=== PATIENT | male | born 1955 | race African-American/Black ===

== ENCOUNTER 2017-02-07 15:04 | Inpatient (IN) | payer OTHER, MEDICARE ==
[2017-02-07] VITALS (8 sets, daily range): BP systolic 95–153; BP diastolic 60–78; PULSE 73–103; RESP 16–32; TEMP 97.8; O2SAT 99–100
[~2017-02-07 15:04] MED LIST: AMLO5TAB96 PO; GLYB5TAB3 PO; HYDR10TA16 PO; LORT5TAB PO; METF-324 PO; ROBA750T3 PO
[2017-02-07] MEDS ORDERED: ceFAZolin 2 GM PREMIX 50 ML ONE (15:08)
[2017-02-07] MEDS ORDERED: DIPHTH/TETANUS/ACEL PERTUSSIS (BOOSTER) 0.5 ML VIAL/PFS IM ONE (15:08)
--- NOTE | 2017-02-07 15:26 | PD ---
HPI Chief Complaint: Trauma (Alert) Time Seen by Provider: 15:17 Travel History International Travel<30 days: No Contact w/Intl Traveler<30days: No Traveled to known affect area: No History of Present Illness HPI 61-year-old male was brought in as a trauma alert and a level II was called by me. I was in the room prior to patient's arrival. Patient apparently was intoxicated and slipped and fell backwards and hit the back of his head on a fish tank. Spoke with the paramedics there was significant amount of blood loss at the scene. Patient was GCS of 14 and hemodynamically stable otherwise. He was verbally argumentative and did not want to come to the hospital. He was boarded and collared and brought in. Patient was awake enough to tell me his name. 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 Vital signs were stable upon arrival. REPLACED BY [facility] Past Medical History Narrative Medical List of his past medical, surgical, social and family history is reviewed from the nursing note. Asthma: Yes Anxiety: Yes Depression: Yes Cancer: No High Cholesterol: Yes COPD: Yes Diabetes: Yes Diminished Hearing: No GERD: Yes Glaucoma: No Genitourinary: Yes (ENLARGED PROSTATE) Hepatitis: No Hiatal Hernia: No Hypertension: Yes Musculoskeletal: Yes (CHRONIC BACK PN) Respiratory: No Immunizations Current: No Myocardial Infarction: Yes (2003) Thyroid Disease: No Ulcer: Yes Past Surgical History Pacemaker: No Other Surgery: Yes (PROSTATE AND HEMMORIDS) Social History Alcohol Use: No (DENIES USE) Tobacco Use: Yes (<1PPD) Substance Use: No Allergies-Medications (Allergen,Severity, Reaction): Coded Allergies: acetaminophen (Unverified Allergy, Severe, ITCHING, 12/06/16) oxycodone (Unverified Allergy, Severe, ITCHING, 12/06/16) Comments List of his allergies reviewed from the nursing note. Reported Meds & Prescriptions Reported Meds & Active Scripts Active Robaxin-750 (Methocarbamol) 750 Mg Tab 2 Tab PO Q8HPRN Lortab 5/500 (Acetaminophen/Hydrocodone Bitart) 5 Mg/500 Mg Tab 1 Tab PO Q4HPRN FOR PAIN Reported Glyburide 5 Mg Tab 5 Mg PO DAILY Lortab 10/500 (Acetaminophen/Hydrocodone Bitart) 10 Mg/500 Mg Tab 1 Tab PO Q4- 6HPRN FOR PAIN Glucophage (Metformin HCl) 1,000 Mg Tab 1,000 Mg PO BID Norvasc (Amlodipine Besylate) 5 Mg Tab 5 Mg PO DAILY Narrative Medication List of his home medications reviewed from the nursing note. Review of Systems Except as stated in HPI: all other systems reviewed are Neg Physical Exam Narrative GENERAL: Intoxicated, slurred speech, combative, boarded and collared SKIN: Focused skin assessment warm/dry. Pale HEAD: Large 6-7 cm deep laceration on the base of the skull at the posterior aspect. Wound was actively bleeding. EYES: Pupils equal and round. No scleral icterus. No injection or drainage. ENT: No nasal bleeding or discharge. Mucous membranes pink and moist. NECK: Trachea midline. No JVD. CARDIOVASCULAR: Regular rate and rhythm. No murmur appreciated. RESPIRATORY: No accessory muscle use. Clear to auscultation. Breath sounds equal bilaterally. GASTROINTESTINAL: Abdomen soft, non-tender, nondistended. Hepatic and splenic margins not palpable. MUSCULOSKELETAL: No obvious deformities. No clubbing. No cyanosis. No edema. NEUROLOGICAL: GCS of 14. No obvious cranial nerve deficits. Motor grossly within normal limits. Slurred speech. PSYCHIATRIC: Appropriate mood and affect; insight and judgment normal. Data Data Last Documented VS Vital Signs Date Time Temp Pulse Resp B/P (MAP) Pulse Ox O2 Delivery O2 Flow Rate FiO2 02/07/17 15:50 102 24 124/66 (85) 100 Room Air 02/07/17 14:55 2.00 Orders Orders Cefazolin 2 Gm Premix (Ancef 2 Gm Premix (02/07/17 15:08) Zbza-Qhi-Httjxq (Booster) Inj (Boostrix (02/07/17 15:08) I-Stat Profile (02/07/17 15:07) I-Stat Creatinine (02/07/17 15:07) Complete Blood Count With Diff (02/07/17 15:07) Prothrombin Time / Inr (Pt) (02/07/17 15:07) Act Partial Throm Time (Ptt) (02/07/17 15:07) Type And Screen (02/07/17 15:07) Ct Brain W/O Iv Contrast(Rout) (02/07/17 15:07) Ct Cerv Spine W/O Contrast (02/07/17 15:07) Iv Access Insert/Monitor (02/07/17 15:07) Ecg Monitoring (02/07/17 15:07) Oximetry (02/07/17 15:07) Oxygen Administration (02/07/17 15:07) Trauma Office Use Only (02/07/17 15:32) Haloperidol Inj (Haldol Inj) (02/07/17 15:45) Lorazepam Inj (Ativan Inj) (02/07/17 15:45) Lorazepam Inj (Ativan Inj) (02/07/17 16:15) Admit Order (Ed Use Only) (02/07/17 16:02) Labs Laboratory Tests Test 02/07/17 15:05 White Blood Count 4.9 TH/MM3 Red Blood Count 4.14 MIL/MM3 Hemoglobin 12.5 GM/DL Bedside Hemoglobin 13.3 G/DL Hematocrit 37.7 % Bedside Hematocrit 39.0 % Mean Corpuscular Volume 91.1 FL Mean Corpuscular Hemoglobin 30.2 PG Mean Corpuscular Hemoglobin Concent 33.2 % Red Cell Distribution Width 14.4 % Platelet Count 275 TH/MM3 Mean Platelet Volume 8.4 FL Neutrophils (%) (Auto) 61.5 % Lymphocytes (%) (Auto) 32.0 % Monocytes (%) (Auto) 5.1 % Eosinophils (%) (Auto) 0.3 % Basophils (%) (Auto) 1.1 % Neutrophils # (Auto) 3.0 TH/MM3 Lymphocytes # (Auto) 1.6 TH/MM3 Monocytes # (Auto) 0.3 TH/MM3 Eosinophils # (Auto) 0.0 TH/MM3 Basophils # (Auto) 0.1 TH/MM3 CBC Comment DIFF FINAL Differential Comment Prothrombin Time 11.5 SEC Prothromb Time International Ratio 1.0 RATIO Activated Partial Thromboplast Time 26.4 SEC Bedside Sodium 138 MMOL/L Bedside Potassium 3.5 MMOL/L Bedside Chloride 98 MMOL/L Bedside Blood Urea Nitrogen LESS THAN 3 MG/DL Bedside Creatinine 1.1 MG/DL Bedside Glucose 164 MG/DL [facility] Medical Screen Exam Complete: Yes Emergency Medical Condition: Yes Medical Record Reviewed: Yes EKG Prior to Arrival: Yes Differential Diagnosis Scalp laceration, skull fracture, intracranial bleed, cervical fracture, intoxication Narrative Course 3:57 PM patient's scalp laceration was emergently stapled given the fact that it was bleeding significantly. Once hemostasis was achieved patient was taken to CT scanner. Patient's GCS and hemodynamics remained steady. Patient meanwhile continued to be belligerent and wants to leave. He is not in capacity right now. I medicated him with Haldol and Ativan. CT scan report came back and shows a cerebral contusion. I discussed the case with the trauma surgeon who wants him admitted to the ICU. I just spoke with neurosurgeon's PA and and they will be consulted. Critical Care Narrative Aggregate critical care time was 60 minutes. Time to perform other separately billable procedures was not included in the critical care time. My time did not include minutes spent treating any other patients simultaneously or on activities that did not directly contribute to the patient's treatment. The services I provided to this patient were to treat and/or prevent clinically significant deterioration that could result in: Trauma alert, intracranial head injury, scalp laceration I provided critical care services requiring my management, as noted below: Chart data review, documentation time, medication orders and management, vital sign assessments/reviewing monitor data, ordering and reviewing lab tests, ordering and interpreting/reviewing x-rays and diagnostic studies, care of the patient and discussion of the patient with the admitting physicians. Procedures Procedure Narrative LACERATION LOCATION: Posterior scalp at the base of the skull LENGTH: 7 NUMBER OF STITCHES/GABRIELLE: 13 gabrielle REPAIR: The area of the laceration was prepped with Betadine and sterilely draped. The laceration was infiltrated with None. The wound was copiously irrigated and explored without evidence of foreign body, tendon injury or neurovascular injury. The wound was closed using gabrielle. This was a single layer repair. A sterile dressing was applied. The patient was advised to keep the dressing clean and dry. Patient tolerated the procedure well. LACERATION LOCATION: Left posterior auricular LENGTH: 5 cm NUMBER OF STITCHES/GABRIELLE: 10 gabrielle REPAIR: The area of the laceration was prepped with Betadine and sterilely draped. The laceration was infiltrated with None. The wound was copiously irrigated and explored without evidence of foreign body, tendon injury or neurovascular injury. The wound was closed using gabrielle. This was a single layer repair. A sterile dressing was applied. The patient was advised to keep the dressing clean and dry. Patient tolerated the procedure well. Trauma Alert - Level Two Trauma Alert Level Two: Full trauma team activate, Patient evaluated, Trauma surgeon called Time Surgeon Called: 16:[address] Mcgovern team, Dr. Damon Diagnosis Diagnosis: Primary Impression: Head injury Qualified Codes: S09.90XA - Unspecified injury of head, initial encounter Additional Impressions: Scalp laceration Qualified Codes: S01.01XA - Laceration without foreign body of scalp, initial encounter Cerebral contusion Qualified Codes: S06.331A - Contusion and laceration of cerebrum, unspecified , with loss of consciousness of 30 minutes or less, initial encounter Acute alcohol intoxication Qualified Codes: F10.929 - Alcohol use, unspecified with intoxication, unspecified Altered mental status Qualified Codes: R41.0 - Disorientation, unspecified Admitting Physician Requests: Admit Segun Thayer MD Feb 07, 2017 15:26
[2017-02-07 15:31] LABS: I-STAT SODIUM 138 MMOL/L (138-146)
[2017-02-07 15:32] LABS: BASOPHIL # 0.1 TH/MM3 (0-0.2); BASOPHIL % 1.1 % (0.0-2.0); EOSINOPHIL % 0.3 % (0.0-4.0); HEMATOCRIT 37.7 % (39.0-51.0); HEMO FLAGS DIFF FINAL; I-STAT POTASSIUM 3.5 MMOL/L (3.5-4.9); LYMPHOCYTE # 1.6 TH/MM3 (1.0-4.8); MEAN CELL VOLUME 91.1 FL (80.0-100.0); MEAN CORPUSCULAR HEMOGLOBIN 30.2 PG (27.0-34.0); MEAN CORPUSCULAR HGB CONC 33.2 % (32.0-36.0); MONO % 5.1 % (0.0-8.0); NEUT % 61.5 % (16.0-70.0); PLATELET COUNT 275 TH/MM3 (150-450); RED BLOOD COUNT 4.14 MIL/MM3 (4.50-5.90); RED CELL DISTRIBUTION WIDTH 14.4 % (11.6-17.2); WHITE BLOOD COUNT 4.9 TH/MM3 (4.0-11.0)
--- NOTE | 2017-02-07 15:32 | RADRPT ---
EXAM DATE/TIME: 02/07/2017 15:15 [facility] COMPARISON: No previous studies available for comparison. INDICATIONS : Trauma alert. Fell into his fishtank. Head laceration. RADIATION DOSE: 56.35 CTDIvol (mGy) MEDICAL HISTORY : Chronic obstructive pulmonary disease. Myocardial infarction. Diabetes mellitus type 2.Hypertension. SURGICAL HISTORY : None. ENCOUNTER: Initial ACUITY: 1 day PAIN SCALE: 7/10 LOCATION: cranial TECHNIQUE: Multiple contiguous axial images were obtained of the head. Using automated exposure control and adj ustment of the mA and/or kV according to patient size, radiation dose was kept as low as reasonably a chievable to obtain optimal diagnostic quality images. DICOM format image data is available electro nically for review and comparison. FINDINGS: CEREBRUM: The ventricles are normal for age. No evidence of midline shift, mass lesion or acute infarction. Ho wever, there appears to be some spontaneously dense material in the cortex high along the left cerebr al vertex. This is Suggestive of a hemorrhagic contusion. No extra-axial fluid collections are seen. POSTERIOR FOSSA: The cerebellum and brainstem are intact. The 4th ventricle is midline. The cerebellopontine angle i s unremarkable. EXTRACRANIAL: The visualized portion of the orbits is intact. SKULL: The calvaria is intact. No evidence of skull fracture. CONCLUSION: 1. Focal hemorrhagic contusion involving the cortex high along the left cerebral vertex. 2. The rest of the CT brain is unremarkable. Eloy Montaño MD on February 07, 2017 at 15:28 Board Certified Radiologist. This report was verified electronically.
[2017-02-07 15:42] LABS: APTT (PATIENT) 26.4 SEC (24.3-30.1); PROTHROMBIN TIME - PATIENT 11.5 SEC (9.8-11.6)
[2017-02-07] MEDS ORDERED: LORazepam 2 MG/ML VIAL IM ONE (15:45)
[2017-02-07] MEDS ORDERED: HALOPERIDOL LACTATE 5 MG/ML AMP IM ONE (15:45)
--- NOTE | 2017-02-07 15:53 | RADRPT ---
EXAM DATE/TIME: 02/07/2017 15:15 [facility] COMPARISON: No previous studies available for comparison. INDICATIONS : Trauma alert. Fell into his fishtank. Head laceration. RADIATION DOSE: 40.34 CTDIvol (mGy) MEDICAL HISTORY : Chronic obstructive pulmonary disease. Myocardial infarction. Diabetes mellitus type 2.Hypertension. SURGICAL HISTORY : None. ENCOUNTER: Initial ACUITY: 1 day PAIN SCALE: 2/10 LOCATION: neck TECHNIQUE: Volumetric scanning of the cervical spine was performed. Multiplanar reconstructions in the sagittal, coronal and oblique axial planes were performed. Using automated exposure control and adjustment o f the mA and/or kV according to patient size, radiation dose was kept as low as reasonably achievable to obtain optimal diagnostic quality images. DICOM format image data is available electronically f or review and comparison. FINDINGS: VERTEBRAE: Normal vertebral body height. ALIGNMENT: No evidence of subluxation. C2-C3: The bony spinal canal is normal in size. No evidence of disc bulge or herniation. Prominent bony unc overtebral hypertrophy generates significant bilateral neural foraminal narrowing. C3-C4: Broad-based disc bulge. Central canal remains patent. Prominent bony uncovertebral hypertrophy genera manasa significant bilateral neural foraminal narrowing. C4-C5: A broad-based disc bulge without central canal stenosis. Prominent bony uncovertebral hypertrophy gen erates moderate bilateral neural foraminal narrowing. C5-C6: There is disc space narrowing with a prominent anterior osteophyte. No significant disc bulge or prot rusion posteriorly. The central canal is patent. Bony uncovertebral hypertrophy with no significant n eural foraminal narrowing. C6-C7: Disc space narrowing with anterior osteophyte during a broad-based disc bulge posteriorly without janell tral canal stenosis. Neural foramina are patent bilaterally. C7-T1: The bony spinal canal is normal in size. No evidence of disc bulge or herniation. The neural forami na are bilaterally patent. CONCLUSION: 1. No fracture or dislocation. 2. Multilevel degenerative changes particularly involving neural foraminal narrowing as detailed anselmo Knight Jr., MD on February 07, 2017 at 15:41 Board Certified Radiologist. This report was verified electronically.
[2017-02-07] MEDS ORDERED: LORazepam 2 MG/ML VIAL IV PUSH ONE (16:15)
--- NOTE | 2017-02-07 16:16 | PD.CONS ---
HPI Consult Requested By DR Sidhu Reason for Consult Trauma alertm TBI Primary Care Physician Venkata Suarez, DO History of Present Illness This is a 61-year-old male was brought in as a trauma alert and a level II was called. He apparently was intoxicated and slipped and fell backwards and hit the back of his head on a fish tank. Spoke with the paramedics there was significant amount of blood loss at the scene. Patient was GCS of 14 and hemodynamically stable otherwise. He was verbally argumentative and did not want to come to the hospital. He was boarded and collared and brought in. He was hemodynamically stable. No seizure activity noted. No tongue bitting. No incontinence of astool or urine. he was intocxicated. 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 CT of the brain Neurosurgical consultation was requested Review of Systems ROS not possible due to neurological condition ROS Limitations: Clinical Condition, Intoxication, Altered Mental Status Past Family Social History Allergies: Coded Allergies: acetaminophen (Unverified Allergy, Severe, ITCHING, 12/06/16) oxycodone (Unverified Allergy, Severe, ITCHING, 12/06/16) Past Medical History Asthma: Yes Anxiety: Yes Depression: Yes Cancer: No High Cholesterol: Yes COPD: Yes Diabetes: Yes Diminished Hearing: No GERD: Yes Glaucoma: No Genitourinary: Yes (ENLARGED PROSTATE) Hepatitis: No Hiatal Hernia: No Hypertension: Yes Musculoskeletal: Yes (CHRONIC BACK PN) Respiratory: No Immunizations Current: No Myocardial Infarction: Yes (2003) Thyroid Disease: No Ulcer: Yes Past Surgical History PROSTATE for BPH\ HEMMORIDECTOMY Reported Medications Robaxin-750 (Methocarbamol) 750 Mg Tab 2 Tab PO Q8HPRN Lortab 5/500 (Acetaminophen/Hydrocodone Bitart) 5 Mg/500 Mg Tab 1 Tab PO Q4HPRN FOR PAIN Glyburide 5 Mg Tab 5 Mg PO DAILY Lortab 10/500 (Acetaminophen/Hydrocodone Bitart) 10 Mg/500 Mg Tab 1 Tab PO Q4- 6HPRN FOR PAIN Glucophage (Metformin HCl) 1,000 Mg Tab 1,000 Mg PO BID Norvasc (Amlodipine Besylate) 5 Mg Tab 5 Mg PO DAILY Active Ordered Medications Current Medications Cefazolin Sodium/ Dextrose 50 ml @ As Directed STK-MED ONCE .ROUTE ; Start at 15:08; Stop 02/07/17 at 15:09; Status DC Diphtheria/ Tetanus/Acell Pertussis (Boostrix Inj) 0.5 ml STK-MED ONCE IM ; Start 02/07/17 at 15:08; Stop 02/07/17 at 15:09; Status DC Haloperidol Lactate (Haldol Inj) 5 mg ONCE ONCE IM Last administered on 15:46; Start 02/07/17 at 15:45; Stop 02/07/17 at 15:46; Status DC Lorazepam (Ativan Inj) 2 mg ONCE ONCE IM Last administered on 02/07/17 15:46 ; Start 02/07/17 at 15:45; Stop 02/07/17 at 15:46; Status DC Lorazepam (Ativan Inj) 1 mg ONCE ONCE IV PUSH Last administered on 02/07/17 16:48; Start 02/07/17 at 16:15; Stop 02/07/17 at 16:16; Status DC Family History His family history was reviewed and noncontributory to this traumatic event Social History Alcohol Use: No (DENIES USE) Tobacco Use: Yes (<1PPD) Substance Use: N Physical Exam Vital Signs Vital Signs Date Time Temp Pulse Resp B/P (MAP) Pulse Ox O2 Delivery O2 Flow Rate FiO2 02/07/17 15:50 102 24 124/66 (85) 100 Room Air 02/07/17 15:47 100 Room Air 02/07/17 15:47 103 25 124/66 (85) 100 Room Air 02/07/17 15:45 96 21 117/78 (91) 100 02/07/17 14:55 100 2.00 Physical Exam The patient is alert, confused, oriented to self. GCS 14. Large occipital scalp laceration Cranial nerve examination demonstrates the pupils to be equal, round, and reactive to light. Extra-ocular movements are intact with normal convergence. Facial motor function appears normal and symmetrical. Face sensation, hearing, visual dee, and olfaction can not be assessed properly due to the patients condition. The patient has an intact corneal reflex and a gag reflex. Sternocleidomastoid and trapezius have normal and symmetrical strength. Other cranial nerves are intact. Neck is soft and supple. Cervical spine has a normal range of motion of the cervical spine without pain. There is no tenderness to palpation to the spinous processes or paraspinal muscles. Muscle testing reveals normal bulk and tone overall without rigidity, spasticity , fasciculations, or atrophy. Muscle strength is 5/5 in all muscle groups of both upper and lower extremities. Deep tendon reflexes are 1+ and symmetrical in the biceps, triceps, and brachioradialis, bilaterally, in the upper extremities. In the lower extremities , the patellar and Achilles are 1+, bilaterally. There is a bilateral plantar flexion response. Hoffmanns sign is negative. There is no clonus or other abnormal reflexes noted. Cerebellar examination is limited due to the patient condition, but no obvious deficits are noted. Laboratory Laboratory Tests Test 02/07/17 15:05 White Blood Count 4.9 Red Blood Count 4.14 Hemoglobin 12.5 Bedside Hemoglobin 13.3 Hematocrit 37.7 Bedside Hematocrit 39.0 Mean Corpuscular Volume 91.1 Mean Corpuscular Hemoglobin 30.2 Mean Corpuscular Hemoglobin Concent 33.2 Red Cell Distribution Width 14.4 Platelet Count 275 Mean Platelet Volume 8.4 Neutrophils (%) (Auto) 61.5 Lymphocytes (%) (Auto) 32.0 Monocytes (%) (Auto) 5.1 Eosinophils (%) (Auto) 0.3 Basophils (%) (Auto) 1.1 Neutrophils # (Auto) 3.0 Lymphocytes # (Auto) 1.6 Monocytes # (Auto) 0.3 Eosinophils # (Auto) 0.0 Basophils # (Auto) 0.1 CBC Comment DIFF FINAL Differential Comment Prothrombin Time 11.5 Prothromb Time International Ratio 1.0 Activated Partial Thromboplast Time 26.4 Bedside Sodium 138 Bedside Potassium 3.5 Bedside Chloride 98 Bedside Blood Urea Nitrogen LESS THAN 3 Bedside Creatinine 1.1 Bedside Glucose 164 Result Diagram: 02/07/17 1505 Imaging Last [address] 02/07/17 1507 Signed Impressions: Service Date/Time: Tuesday, February 07, 2017 15:15 - CONCLUSION: 1. Focal hemorrhagic contusion involving the cortex high along the left cerebral vertex. 2. The rest of the CT brain is unremarkable. Eloy Montaño MD Cervical Spine CT 02/07/17 1507 Signed Impressions: Service Date/Time: Tuesday, February 07, 2017 15:15 - CONCLUSION: 1. No fracture or dislocation. 2. Multilevel degenerative changes particularly involving neural foraminal narrowing as detailed above. Nilesh Knight Jr., MD Assessment and Plan Assessment and Plan Manfredrini VTE Risk Assessment Caprini VTE Risk Assessment: Mod/High Risk (score >= 2) VTE Pharm Contraindication: High risk for bleeding Caprini Risk Assessment Model Point Value = 1 Point Value = 2 Point Value = 3 Point Value = 5 Age 41-60 Minor surgery BMI > 25 kg/m2 Swollen legs Varicose veins or History of unexplained or recurrent spontaneous Oral contraceptives or hormone replacement Sepsis (< 1 month) Serious lung disease, including pneumonia (< 1 month) Abnormal pulmonary function Acute myocardial infarction Congestive heart failure (< 1 month) History of inflammatory bowel disease Medical patient at bed rest Age 61-74 Arthroscopic surgery Major open surgery (> 45 min) Laparoscopic surgery (> 45 min) Malignancy Confined to bed (> 72 hours) Immobilizing plaster cast Central venous access Age >= 75 History of VTE Family history of VTE Factor V Leiden Prothrombin [id number] Lupus anticoagulant Anticardiolipin antibodies Elevated serum homocysteine Heparin-induced thrombocytopenia Other congenital or acquired thrombophilia Stroke (< 1 month) Elective arthroplasty Hip, pelvis, or leg fracture Acute spinal cord injury (< 1 month) Prophylaxis Regimen Total Risk Factor Score Risk Level Prophylaxis Regimen 0-1 Low Early ambulation 2 Moderate Order ONE of the following: *Sequential Compression Device (SCD) *Heparin 5000 units SQ BID 3-4 Higher Order ONE of the following medications: *Heparin 5000 units SQ TID *Enoxaparin/Lovenox 40 mg SQ daily (WT < 150 kg, CrCl > 30 mL/min) *Enoxaparin/Lovenox 30 mg SQ daily (WT < 150 kg, CrCl > 10-29 mL/min) *Enoxaparin/Lovenox 30 mg SQ BID (WT < 150 kg, CrCl > 30 mL/min) AND/OR *Sequential Compression Device (SCD) 5 or more Highest Order ONE of the following medications: *Heparin 5000 units SQ TID (Preferred with Epidurals) *Enoxaparin/Lovenox 40 mg SQ daily (WT < 150 kg, CrCl > 30 mL/min) *Enoxaparin/Lovenox 30 mg SQ daily (WT < 150 kg, CrCl > 10-29 mL/min) *Enoxaparin/Lovenox 30 mg SQ BID (WT < 150 kg, CrCl > 30 mL/min) AND *Sequential Compression Device (SCD) Caprini VTE Risk Assessment Caprini VTE Risk Assessment: Mod/High Risk (score >= 2) VTE Pharm Contraindication: High risk for bleeding Caprini Risk Assessment Model Point Value = 1 Point Value = 2 Point Value = 3 Point Value = 5 Age 41-60 Minor surgery BMI > 25 kg/m2 Swollen legs Varicose veins or History of unexplained or recurrent spontaneous Oral contraceptives or hormone replacement Sepsis (< 1 month) Serious lung disease, including pneumonia (< 1 month) Abnormal pulmonary function Acute myocardial infarction Congestive heart failure (< 1 month) History of inflammatory bowel disease Medical patient at bed rest Age 61-74 Arthroscopic surgery Major open surgery (> 45 min) Laparoscopic surgery (> 45 min) Malignancy Confined to bed (> 72 hours) Immobilizing plaster cast Central venous access Age >= 75 History of VTE Family history of VTE Factor V Leiden Prothrombin [id number] Lupus anticoagulant Anticardiolipin antibodies Elevated serum homocysteine Heparin-induced thrombocytopenia Other congenital or acquired thrombophilia Stroke (< 1 month) Elective arthroplasty Hip, pelvis, or leg fracture Acute spinal cord injury (< 1 month) Prophylaxis Regimen Total Risk Factor Score Risk Level Prophylaxis Regimen 0-1 Low Early ambulation 2 Moderate Order ONE of the following: *Sequential Compression Device (SCD) *Heparin 5000 units SQ BID 3-4 Higher Order ONE of the following medications: *Heparin 5000 units SQ TID *Enoxaparin/Lovenox 40 mg SQ daily (WT < 150 kg, CrCl > 30 mL/min) *Enoxaparin/Lovenox 30 mg SQ daily (WT < 150 kg, CrCl > 10-29 mL/min) *Enoxaparin/Lovenox 30 mg SQ BID (WT < 150 kg, CrCl > 30 mL/min) AND/OR *Sequential Compression Device (SCD) 5 or more Highest Order ONE of the following medications: *Heparin 5000 units SQ TID (Preferred with Epidurals) *Enoxaparin/Lovenox 40 mg SQ daily (WT < 150 kg, CrCl > 30 mL/min) *Enoxaparin/Lovenox 30 mg SQ daily (WT < 150 kg, CrCl > 10-29 mL/min) *Enoxaparin/Lovenox 30 mg SQ BID (WT < 150 kg, CrCl > 30 mL/min) AND *Sequential Compression Device (SCD) Attending Statement traumatic brain injury. Neuro checks in a serial fashion. Nonoperative treatent for now. Follow up CT in AM PT and OT evaluation Scalp laceration. Repaired at bedside. Wound care with bacitracin ETOH intoxication. Attempted to councel Pulmonary aggressive pulmonary toilette, nasotracheal suction, and breathing treatments with nebulizers. Nutrition. NPO Renal. monitor closely urine output, BUN and creatinine Espitia in place. Monitor intake and output. Monitor electrolytes and replace as indicated per ICU electrolyte replacement protocol. ENDO:Acute hyperglycemia secondary to trauma. Monitor bedside glucose and initiate low-dose insulin sliding scale as indicated for glucose greater than 180 Protonix for stress ulcer prophylaxis Nabil flores and SCD's for DVT prophylaxis Shane Damon MD Feb 07, 2017 16:16
[2017-02-07] MEDS ORDERED: LIDOCAINE HCL 1% 50 ML VIAL ONE (18:29)
[2017-02-07] MEDS: SODIUM CHLOR 0.9% 1000 ML INJ 1,000 ML IV SCH ×3 (19:00→20:56)
[2017-02-07] MEDS ORDERED: NOREPINEPHRINE 4 MG/4 ML AMP ONE (19:14)
[2017-02-07] MEDS ORDERED: NOREPINEPHRINE INJ 4 MG in SODIUM CHLOR 0.9% 250 ML INJ 250 ML IV PRN (19:30)
[2017-02-07] MEDS ORDERED: LIDOCAINE HCL 1% 30 ML VIAL SQ ONE (20:15)
[2017-02-07 20:16] LABS: HEMATOCRIT 25.2 % (39.0-51.0); REVIEW FLAG FINAL
[2017-02-07 20:33] LABS: APTT (PATIENT) 28.7 SEC (24.3-30.1); INTERNATIONAL NORMALIZED RATIO 1.1 RATIO; PROTHROMBIN TIME - PATIENT 12.7 SEC (9.8-11.6)
[2017-02-07] MEDS ORDERED: MISCELLANEOUS NURSING INFORMATION XX SCH (22:00)
[2017-02-07] MEDS ORDERED: SODIUM CHLORIDE 0.9% FLUSH 10 ML FLUSH IV FLUSH PRN (22:00)
[2017-02-07] MEDS ORDERED: ONDANSETRON HCL 4 MG/2 ML VIAL IV PUSH PRN (22:00)
[2017-02-07] MEDS ORDERED: ENALAPRILAT 1.25 MG/ML VIAL IV PUSH PRN (22:00)
[2017-02-07] MEDS ORDERED: CHLORHEXIDINE GLUCONATE 2 % 1 PACK (2 CLOTHS) TOP PRN (22:00)
[2017-02-07] MEDS ORDERED: PANTOPRAZOLE SODIUM 40 MG VIAL IVP SCH (22:00)
[2017-02-07] MEDS: ceFAZolin 2 GM PREMIX 50 ML IV SCH (23:22)
[2017-02-08] VITALS (10 sets, daily range): BP systolic 114–150; BP diastolic 56–76; PULSE 73–103; RESP 17–26; TEMP 97.7–100.1; O2SAT 98–100
[2017-02-08 00:20] LABS: AUTOMATED NEUTROPHIL # 9.4 TH/MM3 (1.8-7.7); BASOPHIL # 0.1 TH/MM3 (0-0.2); BASOPHIL % 0.5 % (0.0-2.0); HEMO FLAGS DIFF FINAL; LYMPHOCYTE # 1.8 TH/MM3 (1.0-4.8); MEAN CORPUSCULAR HEMOGLOBIN 29.2 PG (27.0-34.0); MEAN CORPUSCULAR HGB CONC 32.5 % (32.0-36.0); MONO % 4.9 % (0.0-8.0); NEUT % 79.6 % (16.0-70.0); PLATELET COUNT 246 TH/MM3 (150-450); RED BLOOD COUNT 2.77 MIL/MM3 (4.50-5.90); RED CELL DISTRIBUTION WIDTH 14.2 % (11.6-17.2); WHITE BLOOD COUNT 11.8 TH/MM3 (4.0-11.0)
[2017-02-08] MEDS: DEXMEDETOMIDINE 200 MCG in NS 48 ML IV PRN ×2 (00:41→04:03)
[2017-02-08] MEDS ORDERED: ACETAMINOPHEN 325 MG TAB PO ONE (03:45)
[2017-02-08] MEDS ORDERED: CHLORHEXIDINE GLUCONATE 2 % 1 PACK (2 CLOTHS) TOP SCH (04:00)
--- NOTE | 2017-02-08 04:42 | PD.CONS ---
[facility] Service Critical Care Medicine Consult Requested By Primary Care Physician Venkata Suarez DO History of Present Illness 61-year-old male was brought in as a trauma alert. Patient was intoxicated and slipped and fell backwards and hit the back of his head on a fish tank. Per paramedics there was significant amount of blood loss at the scene. Patient was GCS of 14 and hemodynamically stable otherwise. He was verbally argumentative and did not want to come to the hospital. He was boarded and collared and brought in. Vital signs were stable upon arrival. Due to agitation he received Haldol and Ativan in the emergency department and became very obtunded. There was a further concern of an airway protection and patient was admitted to ICU. Review of Systems Constitutional: DENIES: Diaphoretic episodes, Fatigue, Fever, Weight gain, Weight loss, Chills, Dizziness, Change in appetite, Night Sweats Endocrine: DENIES: Heat/cold intolerance, Polydipsia, Polyuria, Polyphagia Eyes: DENIES: Blurred vision, Diplopia, Eye inflammation, Eye pain, Vision loss , Photosensitivity, Double Vision Ears, nose, mouth, throat: DENIES: Tinnitus, Hearing loss, Vertigo, Nasal discharge, Oral lesions, Throat pain, Hoarseness, Ear Pain, Running Nose, Epistaxis, Sinus Pain, Toothache, Odynophagia Respiratory: DENIES: Apneas, Cough, Snoring, Wheezing, Hemoptysis, Sputum production, Shortness of breath Cardiovascular: DENIES: Chest pain, Palpitations, Syncope, Dyspnea on Exertion , PND, Lower Extremity Edema, Orthopnea, Claudication Gastrointestinal: DENIES: Abdominal pain, Black stools, Bloody stools, Constipation, Diarrhea, Nausea, Vomiting, Difficulty Swallowing, Anorexia Genitourinary: DENIES: Sexual dysfunction, Urinary frequency, Urinary incontinence, Urgency, Hematuria, Dysuria, Nocturia, Penile Discharge, Testicular Pain, Testicular Swelling Musculoskeletal: DENIES: Joint pain, Muscle aches, Stiffness, Joint Swelling, Back pain, Neck pain Integumentary: DENIES: Abnormal pigmentation, Nail changes, Pruritus, Rash Hematologic/lymphatic: DENIES: Bruising, Lymphadenopathy Immunologic/allergic: DENIES: Eczema, Urticaria Neurologic: COMPLAINS OF: Headache, DENIES: Abnormal gait, Localized weakness, Paresthesias, Seizures, Speech Problems, Tremor, Poor Balance Psychiatric: COMPLAINS OF: Anxiety, DENIES: Confusion, Mood changes, Depression , Hallucinations, Agitation, Suicidal Ideation, Homicidal Ideation, Delusions Past Family Social History Allergies: Coded Allergies: acetaminophen (Unverified Allergy, Severe, ITCHING, 12/06/16) oxycodone (Unverified Allergy, Severe, ITCHING, 12/06/16) Past Medical History Coronary artery disease Diabetes Hypertension Dyslipidemia Anxiety Asthma Past Surgical History Hemorrhoidectomy TURP Reported Medications Reported Meds & Active Scripts Active Robaxin-750 (Methocarbamol) 750 Mg Tab 2 Tab PO Q8HPRN Lortab 5/500 (Acetaminophen/Hydrocodone Bitart) 5 Mg/500 Mg Tab 1 Tab PO Q4HPRN FOR PAIN Reported Glyburide 5 Mg Tab 5 Mg PO DAILY Lortab 10/500 (Acetaminophen/Hydrocodone Bitart) 10 Mg/500 Mg Tab 1 Tab PO Q4- 6HPRN FOR PAIN Glucophage (Metformin HCl) 1,000 Mg Tab 1,000 Mg PO BID Norvasc (Amlodipine Besylate) 5 Mg Tab 5 Mg PO DAILY Active Ordered Medications Current Medications Medications (Trade) Dose Ordered Sig/Kvng Route PRN Reason Start Time Stop Time Status Last Admin Dose Admin Norepinephrine Bitartrate 4 mg/ Sodium Chloride 254 ml @ 7.62 mls/hr TITRATE PRN IV Maintain MAP > 65 mmHg 02/07/17 19:30 02/07/17 19:00 Sodium Chloride 1,000 ml @ 100 mls/hr Q10H IV 02/07/17 19:45 02/07/17 19:00 Sodium Chloride (NS Flush) 2 ml UNSCH PRN IV FLUSH FLUSH AFTER USING IV ACCESS 02/07/17 22:00 Enalaprilat (Vasotec Inj) 1.25 mg Q8H PRN IV PUSH SBP>180, DBP>95 02/07/17 22:00 Ondansetron HCl (Zofran Inj) 4 mg Q6H PRN IV PUSH NAUSEA OR VOMITING 02/07/17 22:00 Pantoprazole Sodium (Protonix Inj) 40 mg Q24H IVP 02/07/17 22:00 02/07/17 23:22 Miscellaneous Information 1 Q361D XX 02/07/17 22:00 Chlorhexidine Gluconate (Chlorhexidine 2% Cloth) 3 pack Taper DAILY@04 TOP 02/08/17 04:00 02/04/18 03:59 Chlorhexidine Gluconate (Chlorhexidine 2% Cloth) 3 pack UNSCH PRN TOP HYGIENIC CARE 02/07/17 22:00 Cefazolin Sodium/ Dextrose 50 ml @ 100 mls/hr Q8H IV 02/07/17 23:00 02/07/17 23:22 Dexmedetomidine HCl 200 mcg/ Sodium Chloride 50 ml @ 4.36 mls/hr TITRATE PRN IV Desired RASS 02/07/17 22:30 02/08/17 04:03 Family History No family history significant for coronary artery disease or cancer Social History Smokes one pack per day, denies regular alcohol or illicit drug abuse Physical Exam Vital Signs Vital Signs Date Time Temp Pulse Resp B/P (MAP) Pulse Ox O2 Delivery O2 Flow Rate FiO2 02/08/17 00:00 97.7 103 20 131/76 (94) 99 02/07/17 22:12 100 Nasal Cannula 2.00 02/07/17 20:40 98 135/44 02/07/17 20:30 98 119/67 02/07/17 20:00 97.8 102 32 153/71 (98) 100 02/07/17 20:00 88 135/71 02/07/17 19:30 98 140/101 02/07/17 19:00 98 Nasal Cannula 3.00 02/07/17 19:00 98 66/41 02/07/17 17:44 100 Nasal Cannula 3.00 02/07/17 16:50 02/07/17 16:41 91 16 114/72 (86) 99 Room Air 02/07/17 16:23 73 21 95/60 (72) 100 02/07/17 15:50 102 24 124/66 (85) 100 Room Air 02/07/17 15:47 100 Room Air 02/07/17 15:47 103 25 124/66 (85) 100 Room Air 02/07/17 15:45 96 21 117/78 (91) 100 02/07/17 14:55 100 2.00 Physical Exam GENERAL: Well-nourished, well-developed patient. SKIN: Warm and dry. HEAD: Normocephalic. EYES: No scleral icterus. No injection or drainage. NECK: Supple, trachea midline. No JVD or lymphadenopathy. CARDIOVASCULAR: Regular rate and rhythm without murmurs, gallops, or rubs. RESPIRATORY: Breath sounds equal bilaterally. No accessory muscle use. GASTROINTESTINAL: Abdomen soft, non-tender, nondistended. MUSCULOSKELETAL: No cyanosis, or edema. BACK: Nontender without obvious deformity. NEURO EXAM: GCS: M 6 V 5 E 4 Mental Status: The patient is alert and oriented to person, place, and time with normal speech. Cranial Nerves: Visual acuity intact bilaterally. Visual dee normal in all quadrants. Pupils are round, reactive to light. Extraocular movements are intact without ptosis. Hearing is normal bilaterally. Voice is normal. Tongue protrudes midline and moves symmetrically. Reflexes: Biceps, patellar, and Achilles are 2/4 bilaterally. No clonus. Laboratory Laboratory Tests Test 02/07/17 15:05 02/07/17 17:30 02/07/17 19:27 02/08/17 00:00 White Blood Count 4.9 11.8 Red Blood Count 4.14 2.77 Hemoglobin 12.5 8.3 8.1 Bedside Hemoglobin 13.3 Hematocrit 37.7 25.2 25.0 Bedside Hematocrit 39.0 Mean Corpuscular Volume 91.1 90.0 Mean Corpuscular Hemoglobin 30.2 29.2 Mean Corpuscular Hemoglobin Concent 33.2 32.5 Red Cell Distribution Width 14.4 14.2 Platelet Count 275 246 Mean Platelet Volume 8.4 8.3 Neutrophils (%) (Auto) 61.5 79.6 Lymphocytes (%) (Auto) 32.0 15.0 Monocytes (%) (Auto) 5.1 4.9 Eosinophils (%) (Auto) 0.3 0.0 Basophils (%) (Auto) 1.1 0.5 Neutrophils # (Auto) 3.0 9.4 Lymphocytes # (Auto) 1.6 1.8 Monocytes # (Auto) 0.3 0.6 Eosinophils # (Auto) 0.0 0.0 Basophils # (Auto) 0.1 0.1 CBC Comment DIFF FINAL DIFF FINAL Differential Comment Prothrombin Time 11.5 12.7 Prothromb Time International Ratio 1.0 1.1 Activated Partial Thromboplast Time 26.4 28.7 Bedside Sodium 138 Bedside Potassium 3.5 Bedside Chloride 98 Bedside Blood Urea Nitrogen LESS THAN 3 Bedside Creatinine 1.1 Bedside Glucose 164 Nasal Screen MRSA (PCR) MRSA DETECTED Fibrinogen 218 Result Diagram: 02/08/17 0000 Imaging Last [address] 02/07/17 1507 Signed Impressions: Service Date/Time: Tuesday, February 07, 2017 15:15 - CONCLUSION: 1. Focal hemorrhagic contusion involving the cortex high along the left cerebral vertex. 2. The rest of the CT brain is unremarkable. Eloy Montaño MD Cervical Spine CT 02/07/17 1507 Signed Impressions: Service Date/Time: Tuesday, February 07, 2017 15:15 - CONCLUSION: 1. No fracture or dislocation. 2. Multilevel degenerative changes particularly involving neural foraminal narrowing as detailed above. Nilesh Knight Jr., MD Assessment and Plan Assessment and Plan Traumatic brain injury - Small cortical hemorrhagic contusions - Admit to ICU - Neuro checks per unit protocol - Nonoperative management - Further per neurosurgeon Diabetes - Insulin sliding scale - Hold Glyburide and metformin while nothing by mouth Hypertension - Norvasc Headaches - Tylenol when necessary DVT GI prophylaxis - Teds SCDs - No pharmacological DVT prophylaxis due to cerebral hematologic contusions - Early aggressive mobilization - Protonix Critical Care: The total critical care time was 35 minutes. Time to perform other separately billable procedures was not included in the critical care time. Alex Tripathi MD Feb 08, 2017 04:42
[2017-02-08] MEDS ORDERED: DEXTROSE 50% IN WATER 50 ML VIAL(D50) IV PUSH PRN ×3 (04:45→05:45)
[2017-02-08] MEDS ORDERED: GLUCAGON 1 MG/ML VIAL OTHER PRN ×2 (04:45→05:45)
[2017-02-08 05:19] LABS: BASOPHIL % 0.3 % (0.0-2.0); EOSINOPHIL % 0.2 % (0.0-4.0); HEMATOCRIT 21.4 % (39.0-51.0); HEMO FLAGS DIFF FINAL; LYMPH % 17.9 % (9.0-44.0); LYMPHOCYTE # 1.7 TH/MM3 (1.0-4.8); MEAN CELL VOLUME 89.5 FL (80.0-100.0); MEAN CORPUSCULAR HEMOGLOBIN 29.7 PG (27.0-34.0); MEAN CORPUSCULAR HGB CONC 33.2 % (32.0-36.0); MONO % 7.4 % (0.0-8.0); NEUT % 74.2 % (16.0-70.0); PLATELET COUNT 211 TH/MM3 (150-450); RED BLOOD COUNT 2.39 MIL/MM3 (4.50-5.90); WHITE BLOOD COUNT 9.4 TH/MM3 (4.0-11.0)
[2017-02-08] MEDS ORDERED: INSULIN REGULAR (IV INFUSION) 100 UNITS in SODIUM CHLORIDE 0.9% INJ 99 ML IV SCH (05:30)
[2017-02-08] MEDS ORDERED: MISC INFORMATION OTHER ONE (05:30)
[2017-02-08] MEDS ORDERED: SODIUM CHLOR 0.9% 1000 ML INJ 1,000 ML IV ONE ×2 (05:30)
[2017-02-08 06:01] LABS: BICARBONATE 21.2 MEQ/L (21.0-32.0); CALCIUM-PROTEIN CORRECTED 8.2 MG/DL (8.5-10.1); POTASSIUM 3.7 MEQ/L (3.5-5.1); TOTAL BILIRUBIN ADULT 0.2 MG/DL (0.2-1.0)
[2017-02-08] MEDS: SODIUM CHLOR 0.9% 1000 ML INJ 1,000 ML IV SCH (06:50)
[2017-02-08] MEDS: ceFAZolin 2 GM PREMIX 50 ML IV SCH ×3 (07:41→23:00)
--- NOTE | 2017-02-08 07:53 | MH ---
cc: SHWETA BARBER DATE OF ADMISSION: 02/07/2017 DATE OF 1955 HISTORY This is a 61-year-old male who was brought in as a Level II Trauma after falling into a fish tank backwards. The patient was evaluated by the emergency room physician, found to have cerebral contusion and laceration to the head. Trauma Service was requested for admission. By reports the patient was drinking and was intoxicated. The patient was sedated in the emergency room by the emergency room physician. As a result on my evaluation all review of systems and history is unobtainable. PHYSICAL EXAMINATION GENERAL: On exam the patient is laying in bed, sedated, snoring. HEENT: Pupils are equal and reactive. He has a 6-cm laceration to his occiput with gabrielle in place that is acted oozing. He has gabrielle around his right ear from a laceration that was closed. NECK: Trachea is midline. Neck without JVD. RESPIRATIONS: Clear. CARDIOVASCULAR: Regular. GASTROINTESTINAL: Soft, nondistended. MUSCULOSKELETAL: No deformities. NEUROLOGICAL: As stated. RADIOLOGICAL IMAGES CT of the head reveals frontal contusion. CT of the C-spine - no acute fractures. LABORATORY DATA The patient's hemoglobin was 12.5 with hematocrit of 37. ASSESSMENT This is a patient who while intoxicated fell into a fish tank with a laceration to his head that is actively bleeding. We will open the wound to gain control of bleeding at that site. The patient has a frontal contusion. Neurosurgery has been consulted. PLAN We will monitor the patient's neurological status as well as hemodynamics, provide pain management. MD NEGRITO Larson/CELINA /7:31 AM /7:43 AM
[2017-02-08] MEDS ORDERED: INSULIN ASPART SUPPLEMENTAL SCALE SQ SCH (08:00)
[2017-02-08] MEDS: INSULIN ASPART SUPPLEMENTAL SCALE SQ SCH ×4 (08:00→21:30)
--- NOTE | 2017-02-08 08:01 | MP ---
cc: SHWETA TAYLOR DATE OF PROCEDURE 02/07/2017 PREPROCEDURE DIAGNOSIS Laceration to the occiput that is hemorrhaging. POSTPROCEDURE DIAGNOSIS Laceration to the occiput that is hemorrhaging. PROCEDURE Control of bleeding from wound. SURGEON Shweta Taylor MD ANESTHESIA 1% lidocaine OPERATION At the patient's bedside the wound was localized and cleaned with Betadine. The gabrielle were removed. On exploration of the wound there was a superficial vessel that was actively bleeding. This was ligated with 3-0 Vicryl. There was some general oozing as well. This was controlled with Nu-Knit gauze and pressure. Once the bleeding was under control, the wound was re-stapled. The patient tolerated procedure well. MD NEGRITO Larson/CELINA /7:34 AM /7:50 AM
[2017-02-08] MEDS: amLODIPine BESYLATE 5 MG TAB PO SCH (08:50)
[2017-02-08] MEDS: DOCUSATE SODIUM 50 MG/SENNA 8.6 MG TAB PO SCH ×2 (08:56→20:49)
[2017-02-08] MEDS ORDERED: SODIUM CHLOR 0.9% 250 ML INJ 250 ML IV ONE (09:30)
[2017-02-08] MEDS ORDERED: ACETAMINOPHEN/HYDROcodone 325 MG/5 MG TAB PO PRN (10:00)
--- NOTE | 2017-02-08 10:53 | HHI.CCPN ---
Subjective Brief History 61-year-old male heavily intoxicated drunk and fell against a fish tank and sustained the right frontal convexity brain contusions Patient was brought in resuscitated the in laceration of the posterior scalp was closed Patient is no place to ICU for observation 24 Hour Review/Hospital Course This morning patient is awake alert oriented Kellogg Coma scale is 15 Patient's Espitia motoric Akshat intact sensory preserved Lacerations posterior scalp dry Repeat CT of the head Transfer patient out of the unit Objective Vital Signs Date Time Temp Pulse Resp B/P (MAP) Pulse Ox O2 Delivery O2 Flow Rate FiO2 02/08/17 09:03 100 Nasal Cannula 2.00 02/08/17 08:00 98.1 73 20 133/65 (87) Intake and Output 02/08/17 02/08/17 02/09/17 08:00 16:00 00:00 Intake Total 2897.6 ml Output Total 1300 ml Balance 1597.6 ml Result Diagram: 02/08/172 02/08/17 0402 Imaging Last [address] 02/07/17 1507 Signed Impressions: Service Date/Time: Tuesday, February 07, 2017 15:15 - CONCLUSION: 1. Focal hemorrhagic contusion involving the cortex high along the left cerebral vertex. 2. The rest of the CT brain is unremarkable. Eloy Montaño MD Cervical Spine CT 02/07/17 1507 Signed Impressions: Service Date/Time: Tuesday, February 07, 2017 15:15 - CONCLUSION: 1. No fracture or dislocation. 2. Multilevel degenerative changes particularly involving neural foraminal narrowing as detailed above. Nilesh Knight Jr., MD Exam MANAGER QUALITY Awake alert and oriented Ramiro Coma Scale 15 motoric fully intact Hemodynamic/Cardiac Hemodynamically stable Pulmonary/Respiratory Bilateral good breath sounds Hematologic Patient is a anemic with hemoglobin of 7.1. In the face of age will transfuse one unit of blood Assessment and Plan Attestation Critical care 35 minutes Dominick Green MD Feb 08, 2017 10:53
[2017-02-08] MEDS: METHOCARBAMOL 500 MG TAB PO SCH ×2 (14:08→22:00)
--- NOTE | 2017-02-08 14:29 | HHI.NSPN ---
(Harmony Porras) Note Status Status: Progress Note (Harmony Porras) Interval History Interval History This is a 61-year-old male was brought in as a trauma alert and a level II was called. He apparently was intoxicated and slipped and fell backwards and hit the back of his head on a fish tank. Spoke with the paramedics there was significant amount of blood loss at the scene. Patient was GCS of 14 and hemodynamically stable otherwise. He was verbally argumentative and did not want to come to the hospital. He was boarded and collared and brought in. He was hemodynamically stable. No seizure activity noted. No tongue bitting. No incontinence of stool or urine. he was intoxicated. 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 CT of the brain Neurosurgical consultation was requested 02/08: awake, groggy, oriented x 3, c/o head pain and generalized body pain. (Harmony Porras) Labs, Micro, & Vital Signs Results Date Time Temp Pulse Resp B/P (MAP) Pulse Ox O2 Delivery O2 Flow Rate FiO2 02/08/17 11:26 97.7 76 18 119/56 100 02/08/17 11:11 98.1 73 18 121/60 98 02/08/17 09:03 100 Nasal Cannula 2.00 02/08/17 08:00 98.1 73 20 133/65 (87) 100 02/08/17 07:00 Nasal Cannula 3.00 02/08/17 04:00 97.9 86 26 114/66 (82) 100 02/08/17 00:00 97.7 103 20 131/76 (94) 99 02/07/17 22:12 100 Nasal Cannula 2.00 02/07/17 20:40 98 135/44 02/07/17 20:30 98 119/67 02/07/17 20:00 97.8 102 32 153/71 (98) 100 02/07/17 20:00 88 135/71 02/07/17 19:30 98 140/101 02/07/17 19:00 98 Nasal Cannula 3.00 02/07/17 19:00 98 66/41 02/07/17 17:44 100 Nasal Cannula 3.00 02/07/17 16:50 02/07/17 16:41 91 16 114/72 (86) 99 Room Air 02/07/17 16:23 73 21 95/60 (72) 100 02/07/17 15:50 102 24 124/66 (85) 100 Room Air 02/07/17 15:47 100 Room Air 02/07/17 15:47 103 25 124/66 (85) 100 Room Air 02/07/17 15:45 96 21 117/78 (91) 100 02/07/17 14:55 100 2.00 02/07/17 14:55 100 Nasal Cannula 2.00 02/09/17 06:59 Intake Total 10 ml Balance 10 ml Constitutional Vital Signs Date Time Temp Pulse Resp B/P (MAP) Pulse Ox O2 Delivery O2 Flow Rate FiO2 02/08/17 11:26 97.7 76 18 119/56 100 02/08/17 11:11 98.1 73 18 121/60 98 02/08/17 09:03 100 Nasal Cannula 2.00 02/08/17 08:00 98.1 73 20 133/65 (87) 100 02/08/17 07:00 Nasal Cannula 3.00 02/08/17 04:00 97.9 86 26 114/66 (82) 100 02/08/17 00:00 97.7 103 20 131/76 (94) 99 02/07/17 22:12 100 Nasal Cannula 2.00 02/07/17 20:40 98 135/44 02/07/17 20:30 98 119/67 02/07/17 20:00 97.8 102 32 153/71 (98) 100 02/07/17 20:00 88 135/71 02/07/17 19:30 98 140/101 02/07/17 19:00 98 Nasal Cannula 3.00 02/07/17 19:00 98 66/41 02/07/17 17:44 100 Nasal Cannula 3.00 02/07/17 16:50 02/07/17 16:41 91 16 114/72 (86) 99 Room Air 02/07/17 16:23 73 21 95/60 (72) 100 02/07/17 15:50 102 24 124/66 (85) 100 Room Air 02/07/17 15:47 100 Room Air 02/07/17 15:47 103 25 124/66 (85) 100 Room Air 02/07/17 15:45 96 21 117/78 (91) 100 02/07/17 14:55 100 2.00 02/07/17 14:55 100 Nasal Cannula 2.00 02/09/17 06:59 Intake Total 10 ml Balance 10 ml (Harmony Porras) Review of Systems Constitutional: DENIES: Fever, Chills Cardiovascular: DENIES: Chest pain Gastrointestinal: DENIES: Nausea, Vomiting Musculoskeletal: COMPLAINS OF: Muscle aches Neurologic: COMPLAINS OF: Headache, DENIES: Localized weakness (Harmony Porras) Physical Exam Mr. Mckeon is awake and oriented to time, place and person. Speech is fluent. Following simple commands. Cranial nerve examination: pupils to be equal, round, and reactive to light. Extra-ocular movements are intact. Facial motor are normal and symmetrical. Neck is soft and supple. Motor: moves all four extremities well and symmetrically Sensory examination is intact to light touch in both the upper and lower extremities, symmetrically. Cerebellar examination is grossly intact to [id number] test (Harmony Porras) Mr. Mckeon is awake and oriented to time, place and person. Speech is fluent. Following simple commands. Cranial nerve examination: pupils to be equal, round, and reactive to light. Extra-ocular movements are intact. Facial motor are normal and symmetrical. Neck is soft and supple. Motor: moves all four extremities well and symmetrically Sensory examination is intact to light touch in both the upper and lower extremities, symmetrically. Cerebellar examination is grossly intact (Shane Damon MD) Medications Current Medications Current Medications Medications (Trade) Dose Ordered Sig/Kvng Route PRN Reason Start Time Stop Time Status Last Admin Dose Admin Norepinephrine Bitartrate 4 mg/ Sodium Chloride 254 ml @ 7.62 mls/hr TITRATE PRN IV Maintain MAP > 65 mmHg 02/07/17 19:30 02/07/17 19:00 Sodium Chloride (NS Flush) 2 ml UNSCH PRN IV FLUSH FLUSH AFTER USING IV ACCESS 02/07/17 22:00 Enalaprilat (Vasotec Inj) 1.25 mg Q8H PRN IV PUSH SBP>180, DBP>95 02/07/17 22:00 Ondansetron HCl (Zofran Inj) 4 mg Q6H PRN IV PUSH NAUSEA OR VOMITING 02/07/17 22:00 Miscellaneous Information 1 Q361D XX 02/07/17 22:00 Chlorhexidine Gluconate (Chlorhexidine 2% Cloth) 3 pack Taper DAILY@04 TOP 02/08/17 04:00 02/04/18 03:59 Chlorhexidine Gluconate (Chlorhexidine 2% Cloth) 3 pack UNSCH PRN TOP HYGIENIC CARE 02/07/17 22:00 Cefazolin Sodium/ Dextrose 50 ml @ 100 mls/hr Q8H IV 02/07/17 23:00 02/08/17 14:07 Dextrose (D50w (Vial) Inj) 50 ml UNSCH PRN IV PUSH HYPOGLYCEMIA-SEE COMMENTS 02/08/17 05:45 Glucagon (Glucagon Inj) 1 mg UNSCH PRN OTHER HYPOGLYCEMIA-SEE COMMENTS 02/08/17 05:45 Insulin Aspart (NovoLOG SUPPLEMENTAL SCALE) 1 ACHS SLIDING SCALE SQ 02/08/17 08:00 02/08/17 12:00 Senna/Docusate Sodium (Nisha-Colace) 2 tab BID PO 02/08/17 09:00 02/08/17 08:56 Magnesium Hydroxide (Milk Of Magnfantasma Liq) 30 ml HS PO 02/08/17 21:00 Amlodipine Besylate (Norvasc) 5 mg DAILY PO 02/08/17 09:00 Sodium Chloride 250 ml @ 15 mls/hr ONCE ONCE IV 02/08/17 09:30 02/09/17 02:09 02/08/17 11:06 Acetaminophen/ Hydrocodone Bitart ([place] 5-325 Mg) 1 tab Q6H PRN PO Pain 1-5 02/08/17 10:00 UNV Acetaminophen/ Hydrocodone Bitart ([place] 7.5-325 Mg) 1 tab Q6H PRN PO Pain 6-10 02/08/17 10:00 UNV Methocarbamol (Robaxin) 500 mg Q8HR PO 02/08/17 14:00 02/08/17 14:08 Famotidine (Pepcid) 20 mg BID PO 02/08/17 21:00 (Harmnoy Porras) Current Medications Current Medications Cefazolin Sodium/ Dextrose 50 ml @ As Directed STK-MED ONCE .ROUTE ; Start at 15:08; Stop 02/07/17 at 15:09; Status DC Diphtheria/ Tetanus/Acell Pertussis (Boostrix Inj) 0.5 ml STK-MED ONCE IM ; Start 02/07/17 at 15:08; Stop 02/07/17 at 15:09; Status DC Haloperidol Lactate (Haldol Inj) 5 mg ONCE ONCE IM Last administered on 15:46; Start 02/07/17 at 15:45; Stop 02/07/17 at 15:46; Status DC Lorazepam (Ativan Inj) 2 mg ONCE ONCE IM Last administered on 02/07/17 15:46 ; Start 02/07/17 at 15:45; Stop 02/07/17 at 15:46; Status DC Lorazepam (Ativan Inj) 1 mg ONCE ONCE IV PUSH Last administered on 02/07/17 16:48; Start 02/07/17 at 16:15; Stop 02/07/17 at 16:16; Status DC Lidocaine HCl (Xylocaine 1% Inj (50 ml)) 50 ml STK-MED ONCE .ROUTE ; Start at 18:29; Stop 02/07/17 at 18:30; Status DC Norepinephrine Bitartrate (Levophed Inj) 4 mg STK-MED ONCE .ROUTE ; Start 02/07 at 19:14; Stop 02/07/17 at 19:15; Status DC Norepinephrine Bitartrate 4 mg/ Sodium Chloride 254 ml @ 7.62 mls/hr TITRATE PRN IV Maintain MAP > 65 mmHg Last administered on 02/07/17 19:00; Start at 19:30 Sodium Chloride 1,000 ml @ 100 mls/hr Q10H IV Last administered on 02/08/17 06:50; Start 02/07/17 at 19:45; Stop 02/08/17 at 10:04; Status DC Sodium Chloride 2,000 ml @ 999 mls/hr Q2H1M IV Last administered on 20:56; Start 02/07/17 at 20:15; Stop 02/07/17 at 22:15; Status DC Lidocaine HCl (Xylocaine 1% Inj) 30 ml NOW ONCE SQ Last administered on 19:00; Start 02/07/17 at 20:15; Stop 02/07/17 at 20:16; Status DC Sodium Chloride (NS Flush) 2 ml UNSCH PRN IV FLUSH FLUSH AFTER USING IV ACCESS ; Start 02/07/17 at 22:00 Enalaprilat (Vasotec Inj) 1.25 mg Q8H PRN IV PUSH SBP>180, DBP>95; Start 02/07 at 22:00 Ondansetron HCl (Zofran Inj) 4 mg Q6H PRN IV PUSH NAUSEA OR VOMITING; Start at 22:00 Pantoprazole Sodium (Protonix Inj) 40 mg Q24H IVP Last administered on 23:22; Start 02/07/17 at 22:00; Stop 02/08/17 at 10:04; Status DC Miscellaneous Information 1 Q361D XX ; Start 02/07/17 at 22:00 Chlorhexidine Gluconate (Chlorhexidine 2% Cloth) 3 pack Taper DAILY@04 TOP ; Start 02/08/17 at 04:00; Stop 02/04/18 at 03:59 Chlorhexidine Gluconate (Chlorhexidine 2% Cloth) 3 pack UNSCH PRN TOP HYGIENIC CARE; Start 02/07/17 at 22:00 Cefazolin Sodium/ Dextrose 50 ml @ 100 mls/hr Q8H IV Last administered on 14:07; Start 02/07/17 at 23:00 Dexmedetomidine HCl 200 mcg/ Sodium Chloride 50 ml @ 4.36 mls/hr TITRATE PRN IV Desired RASS Last administered on 02/08/17 04:03; Start 02/07/17 at 22:30 ; Stop 02/08/17 at 10:04; Status DC Acetaminophen (Tylenol) 650 mg NOW ONCE PO ; Start 02/08/17 at 03:45; Stop at 03:46; Status DC Dextrose (D50w (Vial) Inj) 50 ml UNSCH PRN IV PUSH HYPOGLYCEMIA-SEE COMMENTS; Start 02/08/17 at 04:45; Stop 02/08/17 at 05:33; Status DC Glucagon (Glucagon Inj) 1 mg UNSCH PRN OTHER HYPOGLYCEMIA-SEE COMMENTS; Start 02/08/17 at 04:45; Stop 02/08/17 at 05:40; Status DC Insulin Aspart (NovoLOG SUPPLEMENTAL SCALE) 1 ACHS SLIDING SCALE SQ ; Start at 08:00; Stop 02/08/17 at 08:00; Status DC Sodium Chloride 1,000 ml @ 999 mls/hr BOLUS ONCE IV ; Start 02/08/17 at 05:30 ; Stop 02/08/17 at 05:33; Status DC Sodium Chloride 1,000 ml @ 999 mls/hr BOLUS ONCE IV ; Start 02/08/17 at 05:30 ; Stop 02/08/17 at 05:33; Status DC Insulin Human Regular 100 units/ Sodium Chloride 100 ml @ 2 mls/hr TITRATE IV ; Start 02/08/17 at 05:30; Stop 02/08/17 at 05:39; Status DC Dextrose (D50w (Vial) Inj) 50 ml UNSCH PRN IV PUSH SEE LABEL COMMENTS; Start 02/08/17 at 05:30; Stop 02/08/17 at 05:33; Status DC Miscellaneous Information 1 ONCE ONCE OTHER ; Start 02/08/17 at 05:30; Stop 02/08/17 at 05:33; Status DC Dextrose (D50w (Vial) Inj) 50 ml UNSCH PRN IV PUSH HYPOGLYCEMIA-SEE COMMENTS; Start 02/08/17 at 05:45 Glucagon (Glucagon Inj) 1 mg UNSCH PRN OTHER HYPOGLYCEMIA-SEE COMMENTS; Start 02/08/17 at 05:45 Insulin Aspart (NovoLOG SUPPLEMENTAL SCALE) 1 ACHS SLIDING SCALE SQ Last administered on 02/08/17 12:00; Start 02/08/17 at 08:00 Senna/Docusate Sodium (Nisha-Colace) 2 tab BID PO Last administered on 08:56; Start 02/08/17 at 09:00 Magnesium Hydroxide (Milk Of Magnesia Liq) 30 ml HS PO ; Start 02/08/17 at 21: 00 Amlodipine Besylate (Norvasc) 5 mg DAILY PO ; Start 02/08/17 at 09:00 Sodium Chloride 250 ml @ 15 mls/hr ONCE ONCE IV Last administered on t 11:06; Start 02/08/17 at 09:30; Stop 02/09/17 at 02:09 Acetaminophen/ Hydrocodone Bitart ([place] 5-325 Mg) 1 tab Q6H PRN PO Pain 1-5; Start 02/08/17 at 10:00 Acetaminophen/ Hydrocodone Bitart ([place] 7.5-325 Mg) 1 tab Q6H PRN PO Pain 6- 10 Last administered on 02/08/17t 15:41; Start 02/08/17 at 10:00 Methocarbamol (Robaxin) 500 mg Q8HR PO Last administered on 02/08/17t 14:08; Start 02/08/17 at 14:00 Famotidine (Pepcid) 20 mg BID PO ; Start 02/08/17 at 21:00 (Shane Damon MD) Medical Decision Making MDM Remarks 61 y/o male s/p fall, CHI, etoh intoxication, CT Brain 02/07 with small frontal contusions nonfocal neuro examination (Harmony Porras) MDM Remarks Last [address] 02/07/17 1507 Signed Impressions: Service Date/Time: Tuesday, February 07, 2017 15:15 - CONCLUSION: 1. Focal hemorrhagic contusion involving the cortex high along the left cerebral vertex. 2. The rest of the CT brain is unremarkable. Eloy Montaño MD Cervical Spine CT 02/07/17 1507 Signed Impressions: Service Date/Time: Tuesday, February 07, 2017 15:15 - CONCLUSION: 1. No fracture or dislocation. 2. Multilevel degenerative changes particularly involving neural foraminal narrowing as detailed above. Nilesh Knight Jr., MD (Shane Damon MD) Plan Plan Remarks cont nonop management repeat CT Head today pending, cont serial neuro checks nonchemical dvt prophylaxis in view of ICH, protonix for stress ulcer prophylaxis cont supportive care of etoh withdrawals (Harmony Porras) Attending Statement As above traumatic brain injury. Continue neuro checks . Continue Nonoperative treatent. Follow up CT in AM Daily PT and OT Scalp laceration. Repaired at bedside. Wound care with bacitracin ETOH intoxication. Counseled in Pulmonary aggressive pulmonary toilette, nasotracheal suction, and breathing treatments with nebulizers. Nutrition. NPO Renal. monitor closely urine output, BUN and creatinine Espitia in place. Monitor intake and output. Monitor electrolytes and replace as indicated per ICU electrolyte replacement protocol. ENDO:Acute hyperglycemia secondary to trauma. Monitor bedside glucose and initiate low-dose insulin sliding scale as indicated for glucose greater than 180 Continue Protonix for stress ulcer prophylaxis Continue Nabil hose and SCD's for DVT prophylaxis The exam, history, and the medical decision-making described in the above note were completed with the assistance of the mid-level provider. I reviewed and agree with the findings presented. I attest that I had a [id number] encounter with the patient on the same day, and personally performed and documented my assessment and findings in the medical record. (Shane Damon MD) Harmony Porras Feb 08, 2017 14:29 Shane Damon MD Feb 08, 2017 16:48
[2017-02-08] MEDS: ACETAMINOPHEN/HYDROcodone 325 MG/7.5 MG TAB PO PRN ×2 (15:41→20:51)
[2017-02-08 17:19] LABS: HEMATOCRIT 25.6 % (39.0-51.0); REVIEW FLAG FINAL
[2017-02-08] MEDS: FAMOTIDINE 20 MG TAB PO SCH (20:51)
[2017-02-08] MEDS ORDERED: SENN1TAB PO (21:00)
[2017-02-08] MEDS ORDERED: MAGN400S PO (21:00)
[2017-02-08] MEDS ORDERED: MAGNESIUM HYDROXIDE SUSP 30 ML CUP PO SCH (21:00)
--- NOTE | 2017-02-08 22:53 | RADRPT ---
EXAM DATE/TIME: 02/08/2017 22:24 [facility] COMPARISON: CT BRAIN W/O CONTRAST, February 07, 2017, 15:15. INDICATIONS : Follow up hemorrhage. RADIATION DOSE: Not given MEDICAL HISTORY : Cardiovascular disease. Hypertension. Diabetes mellitus type 2.Asthma SURGICAL HISTORY : None. ENCOUNTER: Subsequent ACUITY: 1 day PAIN SCALE: 2/10 LOCATION: cranial TECHNIQUE: Multiple contiguous axial images were obtained of the head. Using automated exposure control and adj ustment of the mA and/or kV according to patient size, radiation dose was kept as low as reasonably a chievable to obtain optimal diagnostic quality images. DICOM format image data is available electro nically for review and comparison. FINDINGS: CEREBRUM: The ventricles are normal for age. No evidence of midline shift, mass lesion or acute infarction. N o extra-axial fluid collections are seen. Focal increased density in the cortex high along the left c onvexity is stable consistent with hemorrhage or contusion POSTERIOR FOSSA: The cerebellum and brainstem are intact. The 4th ventricle is midline. The cerebellopontine angle i s unremarkable. EXTRACRANIAL: The visualized portion of the orbits is intact. SKULL: The calvaria is intact. No evidence of skull fracture. CONCLUSION: Stable CT brain scan. Focal area of hemorrhage contusion along the cortex high left cerebral vertex i s unchanged Xu Cardona MD on February 08, 2017 at 22:49 Board Certified Radiologist. This report was verified electronically.
[2017-02-09 00:14] VITALS: BP 148/65; PULSE 90; RESP 17; TEMP 99.5; O2SAT 98
[2017-02-09] MEDS: ACETAMINOPHEN/HYDROcodone 325 MG/7.5 MG TAB PO PRN (01:52)
[2017-02-09 04:30] VITALS: BP 173/93; PULSE 93; RESP 17; TEMP 99.3; O2SAT 99
[2017-02-09 04:59] LABS: AUTOMATED NEUTROPHIL # 8.3 TH/MM3 (1.8-7.7); BASOPHIL # 0.1 TH/MM3 (0-0.2); EOSINOPHIL # 0.1 TH/MM3 (0-0.4); EOSINOPHIL % 0.4 % (0.0-4.0); HEMATOCRIT 25.5 % (39.0-51.0); HEMO FLAGS DIFF FINAL; LYMPHOCYTE # 2.8 TH/MM3 (1.0-4.8); MEAN CELL VOLUME 87.4 FL (80.0-100.0); MEAN CORPUSCULAR HEMOGLOBIN 29.6 PG (27.0-34.0); MEAN CORPUSCULAR HGB CONC 33.9 % (32.0-36.0); MONO % 8.5 % (0.0-8.0); NEUT % 67.1 % (16.0-70.0); PLATELET COUNT 213 TH/MM3 (150-450); RED BLOOD COUNT 2.92 MIL/MM3 (4.50-5.90); RED CELL DISTRIBUTION WIDTH 15.5 % (11.6-17.2); WHITE BLOOD COUNT 12.3 TH/MM3 (4.0-11.0)
[2017-02-09 05:25] LABS: ALT (GPT) 20 U/L (12-78); ANION GAP 5 MEQ/L (5-15); AST (GOT) 27 U/L (15-37); BICARBONATE 28.2 MEQ/L (21.0-32.0); BLOOD UREA NITROGEN 4 MG/DL (7-18); CHLORIDE 108 MEQ/L (98-107); GLOMERULAR FILTRATION RATE 121 ML/MIN (>89); POTASSIUM 3.6 MEQ/L (3.5-5.1); SODIUM (NA) 141 MEQ/L (136-145)
[2017-02-09 05:27] LABS: ALKALINE PHOSPHATASE 59 U/L (45-117); TOTAL BILIRUBIN ADULT 0.3 MG/DL (0.2-1.0)
[2017-02-09] MEDS: METHOCARBAMOL 500 MG TAB PO SCH ×2 (06:00→06:43)
[2017-02-09] MEDS: ceFAZolin 2 GM PREMIX 50 ML IV SCH (06:41)
[2017-02-09] MEDS: INSULIN ASPART SUPPLEMENTAL SCALE SQ SCH (08:00)
[2017-02-09] MEDS: DOCUSATE SODIUM 50 MG/SENNA 8.6 MG TAB PO SCH (08:38)
[2017-02-09] MEDS: FAMOTIDINE 20 MG TAB PO SCH (08:38)
[2017-02-09] MEDS: amLODIPine BESYLATE 5 MG TAB PO SCH (08:38)
[2017-02-09 10:18] VITALS: BP 168/80; PULSE 77; RESP 20; TEMP 98.4; O2SAT 100
--- NOTE | 2017-02-09 11:03 | HHI.PR ---
Subjective Subjective Notes PTD: 2 Objective Vitals/I&O Vital Signs Date Time Temp Pulse Resp B/P (MAP) Pulse Ox O2 Delivery O2 Flow Rate FiO2 02/09/17 10:18 98.4 77 20 168/80 (109) 100 02/08/17 09:03 Nasal Cannula 2.00 Labs Laboratory Tests Test 02/08/17 16:39 02/09/17 04:12 02/09/17 04:52 Hemoglobin 8.6 8.7 Hematocrit 25.6 25.5 Blood Urea Nitrogen 4 Creatinine 0.79 Random Glucose 144 Total Protein 5.5 Albumin 2.8 Calcium Level 7.5 Alkaline Phosphatase 59 Aspartate Amino Transf (AST/SGOT) 27 Alanine Aminotransferase (ALT/SGPT) 20 Total Bilirubin 0.3 Sodium Level 141 Potassium Level 3.6 Chloride Level 108 Carbon Dioxide Level 28.2 Anion Gap 5 Estimat Glomerular Filtration Rate 121 White Blood Count 12.3 Red Blood Count 2.92 Mean Corpuscular Volume 87.4 Mean Corpuscular Hemoglobin 29.6 Mean Corpuscular Hemoglobin Concent 33.9 Red Cell Distribution Width 15.5 Platelet Count 213 Mean Platelet Volume 8.3 Neutrophils (%) (Auto) 67.1 Lymphocytes (%) (Auto) 23.0 Monocytes (%) (Auto) 8.5 Eosinophils (%) (Auto) 0.4 Basophils (%) (Auto) 1.0 Neutrophils # (Auto) 8.3 Lymphocytes # (Auto) 2.8 Monocytes # (Auto) 1.0 Eosinophils # (Auto) 0.1 Basophils # (Auto) 0.1 CBC Comment DIFF FINAL Differential Comment Radiology Last Impressions Head CT 02/08/17 0000 Signed Impressions: Service Date/Time: Wednesday, February 08, 2017 22:24 - CONCLUSION: Stable CT brain scan. Focal area of hemorrhage contusion along the cortex high left cerebral vertex is unchanged Xu Cardona MD Cervical Spine CT 02/07/17 1507 Signed Impressions: Service Date/Time: Tuesday, February 07, 2017 15:15 - CONCLUSION: 1. No fracture or dislocation. 2. Multilevel degenerative changes particularly involving neural foraminal narrowing as detailed above. Nilesh Knight Jr., MD A/P Problem List: (1) Cerebral contusion ICD Codes: S06.339A - Contusion and laceration of cerebrum, unspecified, with loss of consciousness of unspecified duration, initial encounter Status: Acute (2) Altered mental status ICD Codes: R41.82 - Altered mental status, unspecified Status: Acute (3) Head injury ICD Codes: S09.90XA - Unspecified injury of head, initial encounter Status: Acute (4) Acute alcohol intoxication ICD Codes: F10.929 - Alcohol use, unspecified with intoxication, unspecified Status: Acute (5) Scalp laceration ICD Codes: S01.01XA - Laceration without foreign body of scalp, initial encounter Status: Acute Problem Qualifiers (1) Cerebral contusion: Qualified Codes: S06.331A - Contusion and laceration of cerebrum, unspecified, with loss of consciousness of 30 minutes or less, initial encounter (2) Altered mental status: Qualified Codes: R41.0 - Disorientation, unspecified (3) Head injury: Qualified Codes: S09.90XA - Unspecified injury of head, initial encounter (4) Acute alcohol intoxication: Qualified Codes: F10.929 - Alcohol use, unspecified with intoxication, unspecified (5) Scalp laceration: Qualified Codes: S01.01XA - Laceration without foreign body of scalp, initial encounter Zoë Willis Feb 09, 2017 11:03
[2017-02-09] MEDS ORDERED: HYDR-3516 PO (12:14)
[2017-02-09 12:15] VITALS: BP 144/74; PULSE 92; RESP 20; TEMP 97.3; O2SAT 99
--- NOTE | 2017-02-09 12:26 | HHI.DS ---
Discharge Summary Admission Date Feb 07, 2017 at 16:04 Discharge Date: Feb 09, 2017 Admitting Diagnosis fall, head injury, cerebral contusion, scalp laceration (1) Cerebral contusion ICD Codes: S06.339A - Contusion and laceration of cerebrum, unspecified, with loss of consciousness of unspecified duration, initial encounter Status: Acute (2) Altered mental status ICD Codes: R41.82 - Altered mental status, unspecified Status: Acute (3) Head injury ICD Codes: S09.90XA - Unspecified injury of head, initial encounter Status: Acute (4) Acute alcohol intoxication ICD Codes: F10.929 - Alcohol use, unspecified with intoxication, unspecified Status: Acute (5) Scalp laceration ICD Codes: S01.01XA - Laceration without foreign body of scalp, initial encounter Status: Acute Brief History Fall CBC/BMP: 02/09/17 0452 02/09/17 0412 Significant Findings Laboratory Tests Test 02/07/17 15:05 02/07/17 17:30 02/07/17 19:27 02/08/17 00:00 Red Blood Count 4.14 MIL/MM3 (4.50-5.90) 2.77 MIL/MM3 (4.50-5.90) Hemoglobin 12.5 GM/DL (13.0-17.0) 8.3 GM/DL (13.0-17.0) 8.1 GM/DL (13.0-17.0) Hematocrit 37.7 % (39.0-51.0) 25.2 % (39.0-51.0) 25.0 % (39.0-51.0) Bedside Blood Urea Nitrogen LESS THAN 3 MG/DL (8-26) Bedside Glucose 164 MG/DL (60-95) Prothrombin Time 12.7 SEC (9.8-11.6) Fibrinogen 218 mg/dL (227-377) White Blood Count 11.8 TH/MM3 (4.0-11.0) Neutrophils (%) (Auto) 79.6 % (16.0-70.0) Neutrophils # (Auto) 9.4 TH/MM3 (1.8-7.7) Test 02/08/17 04:02 02/08/17 09:00 02/08/17 16:39 02/09/17 04:12 Red Blood Count 2.39 MIL/MM3 (4.50-5.90) Hemoglobin 7.1 GM/DL (13.0-17.0) 8.6 GM/DL (13.0-17.0) Hematocrit 21.4 % (39.0-51.0) 25.6 % (39.0-51.0) Neutrophils (%) (Auto) 74.2 % (16.0-70.0) Blood Urea Nitrogen 4 MG/DL (7-18) 4 MG/DL (7-18) Random Glucose 123 MG/DL (74-106) 144 MG/DL (74-106) Total Protein 4.9 GM/DL (6.4-8.2) 5.5 GM/DL (6.4-8.2) Albumin 2.6 GM/DL (3.4-5.0) 2.8 GM/DL (3.4-5.0) Calcium Level 7.0 MG/DL (8.5-10.1) 7.5 MG/DL (8.5-10.1) Chloride Level 109 MEQ/L (98-107) 108 MEQ/L (98-107) Protein Corrected Calcium 8.2 MG/DL (8.5-10.1) Urine Cocaine Screen POS (NEG) Test 02/09/17 04:52 White Blood Count 12.3 TH/MM3 (4.0-11.0) Red Blood Count 2.92 MIL/MM3 (4.50-5.90) Hemoglobin 8.7 GM/DL (13.0-17.0) Hematocrit 25.5 % (39.0-51.0) Monocytes (%) (Auto) 8.5 % (0.0-8.0) Neutrophils # (Auto) 8.3 TH/MM3 (1.8-7.7) Monocytes # (Auto) 1.0 TH/MM3 (0-0.9) Imaging Last Impressions Head CT 02/08/17 0000 Signed Impressions: Service Date/Time: Wednesday, February 08, 2017 22:24 - CONCLUSION: Stable CT brain scan. Focal area of hemorrhage contusion along the cortex high left cerebral vertex is unchanged Xu Cardona MD Cervical Spine CT 02/07/17 1507 Signed Impressions: Service Date/Time: Tuesday, February 07, 2017 15:15 - CONCLUSION: 1. No fracture or dislocation. 2. Multilevel degenerative changes particularly involving neural foraminal narrowing as detailed above. Nilesh Knight Jr., MD PE at Discharge GENERAL: This is a 61-year-old AA male sitting in a chair. Observed him walk around the room, and he displayed how he can bend from [id number], and touch his toes without incident. SKIN: Warm and dry. HEAD: Normocephalic. [place] in place to posterior scalp and left post auricular. LIZBETH EYES: PERRLA ENT: No nasal bleeding or discharge. Mucous membranes pink and moist. NECK: Trachea midline. No JVD. CARDIOVASCULAR: Regular rate and rhythm. RESPIRATORY: No accessory muscle use. Lungs are clear to auscultation. Breath sounds equal bilaterally. No distress or dyspnea. GASTROINTESTINAL: BS + x 4 quads. Abdomen soft, non-tender, nondistended. MUSCULOSKELETAL: Extremities without cyanosis, or edema. + peripheral pulses x 4 extremities. Warm with good capillary refill and sensation. MAEW. NEUROLOGICAL: Awake and alert. Normal speech and pattern. Hospital Course [place]: This is a 61-year-old AA male who sustained a fall. The patient was intoxicated and slipped and fell backwards and hit his head on a fish tank. There was a large amount of blood at the scene. GCS 14. Patient was argumentative and did not want to come to the hospital. + ETOH. + Cocaine. INJURIES: Posterior scalp lack Left postauricular lack Hemorrhagic contusion PMHx: DM. HLD. GERD. HTN. Chronic Back pain. [place] (2004) Prostate. Depression. Anxiety. Asthma. Procedures: Consults: Neurosurgery. [facility]. Case management. The patient is now tolerating a po diet. Eating and drinking well. Pain is being managed well with PO pain medications, and patient is being a provided with a script for pain meds upon discharge. (NO driving while taking narcotic pain medication enforced to patient.) Pt is having regular bowel movements, and have recommended to patient to continue with stool softeners while taking narcotic pain medications to prevent constipation. Pt has been participating in PT and OT while admitted at [place] and has been ambulating with their assistance and independently . All follow up appointments have been provided and discussed with the patient. It is recommended that the patient keeps all his follow up appointments for continued recovery. Therefore, the patient is stable to be safely discharged home from a trauma surgery standpoint. Thank you for allowing us to participate in his care. We wish Carlos the best in his recovery. Hemorrhagic contusion Posterior scalp lac (13 gabrielle) LEFT post auricular lac (10 gabrielle Neurosurgery consulted and assisting in management and care No surgical intervention needed at this time Supportive care Pain management PT and OT ordered [place] out of bed Follow up CT - stable Cleared for DC from neurosurgery standpoint Patient to follow up outpatient with neurosurgery Wash scalp lacerations daily with soap and water. Pat dry. Returned to PCP in one week for staple removal. Pt Condition on Discharge: Stable Discharge Disposition: Discharge Home Discharge Instructions DIET: Follow Instructions for: As Tolerated, No Restrictions Activities you can perform: Regular-No Restrictions Activities to Avoid: Driving for 24 hrs, Concussion Sports, Contact Sports, Lifting/Bending, Prolonged Standing, Strenuous Activity, Driving Other Activity Instructions: No driving while taking narcotic pain Zoë Arce Feb 09, 2017 12:26
== END 2017-02-09 13:02 | disposition home or self-care (01) | DRG 982 ==
LOC: NEPI 15:04 → NEDA 16:04 → N03A 17:28 → N05A 02-08 18:48
PROVIDERS: ADMIT Surgery; ATTEND Surgery
PROC: 0W300ZZ Control Bleeding in Head, Open Approach (ICD-10-PCS; principal; 2017-02-07)
PROC: 0HQ3XZZ Repair Left Ear Skin, External Approach (ICD-10-PCS; 2017-02-07)
PROC: 0HQ0XZZ Repair Scalp Skin, External Approach (ICD-10-PCS; 2017-02-07)
PROC: 30233N1 Transfusion of Nonautologous Red Blood Cells into Peripheral Vein, Percutaneous Approach (ICD-10-PCS; 2017-02-08)
DX: S06.330A Contusion and laceration of cerebrum, unspecified, without loss of consciousness, initial encounter (principal); S09.0XXA Injury of blood vessels of head, not elsewhere classified, initial encounter; E11.65 Type 2 diabetes mellitus with hyperglycemia; I10 Essential (primary) hypertension; F10.230 Alcohol dependence with withdrawal, uncomplicated; F32.9 Major depressive disorder, single episode, unspecified; E78.5 Hyperlipidemia, unspecified; F17.210 Nicotine dependence, cigarettes, uncomplicated; F41.9 Anxiety disorder, unspecified; G89.29 Other chronic pain; M54.9 Dorsalgia, unspecified; I25.10 Atherosclerotic heart disease of native coronary artery without angina pectoris; J44.9 Chronic obstructive pulmonary disease, unspecified; K21.9 Gastro-esophageal reflux disease without esophagitis; S01.01XA Laceration without foreign body of scalp, initial encounter; W01.198A Fall on same level from slipping, tripping and stumbling with subsequent striking against other object, initial encounter; R40.2411 Glasgow coma scale score 13-15, in the field [EMT or ambulance]; S01.312A Laceration without foreign body of left ear, initial encounter; Z79.84 Long term (current) use of oral hypoglycemic drugs; I25.2 Old myocardial infarction
CPT/HCPCS: 12004; 36430; 36620; 70450; 72125; 76937; 80053; 80307; 82435; 82565; 82947; 84132; 84295; 84520; 85014; 85018; 85025; 85384; 85610; 85730; 86850; 86900; 86901; 86920; 87641; 90471; 90715; 94150; 96372; 96374; 99291; C9113; G0390; J0690; J1630; J1815; J2060; J7030; J7050; P9016